=== PATIENT | male | born 1960 | race Caucasian/White ===

== ENCOUNTER → 2017-10-17 10:02 | Outpatient (CLI) | payer OTHER, SELFPAY ==
--- NOTE | 2017-10-17 10:05 | RAD_ITS ---
STUDY: X-RAY - LEFT SHOULDER REASON FOR EXAM: Male, 57 years old. Postoperative pain. TECHNIQUE: 3 view(s) of the shoulder. COMPARISON: 3 views of the left shoulder December 06, 2016. 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 There is stable tapered deformity of the distal left clavicle. Normal acromion. The osseous margin of the proximal humerus abutting the prosthesis appears intact without sign of loosening. The soft tissue structures are unremarkable. There is no demonstrated fracture. Normal visualized pulmonary apex. RAD/Shoulder min 2 Views IMPRESSION: Stable x-ray examination of the left shoulder, as noted. Electronically Signed: Cj Kong MD at 22:45 EST , Service support ,
== END ==
PROVIDERS: Visit Provider Orthopaedic Surgery
DX: M25.512 Pain in left shoulder (principal)
CPT/HCPCS: 73030